=== PATIENT | male | born 1975 | race Caucasian/White ===

== ENCOUNTER 2017-12-26 08:51 | Emergency (ER) | payer OTHER ==
--- NOTE | 2017-12-26 09:20 | ER Document Report ---
ED Medical Screen (RME) - General Chief Complaint: Abscess Stated Complaint: POSSIBLE ABSCESS Time Seen by Provider: 12/26/17 09:18 Notes: Patient is a 42-year-old male that presents to the emergency department for chief complaint of abscess. Patient states she is noticed over the last 3 or 4 days abscess over his left upper back, has been draining thick yellow material. ROS: Other than noted above, the 12 point review of systems was reviewed with the patient and were negative, all pertinent findings are included in the HPI. PHYSICAL EXAMINATION: Vital signs reviewed. GENERAL: Well-appearing, well-nourished and in no acute distress. HEAD: Atraumatic, normocephalic. EYES: Pupils equal round extraocular movements intact, conjunctiva are normal. ENT: Nares patent NECK: Normal range of motion CV: Heart regular rate and rhythm LUNGS: No respiratory distress Musculoskeletal: Normal range of motion NEUROLOGICAL: Normal speech Skin: Left upper back demonstrates an area of induration, that comes to a head, with trace purulent discharge, seems most consistent with a sebaceous cyst PSYCH: Normal mood, normal affect. MDM: Patient seen and examined for rapid initial assessment. Vital signs reviewed. A comprehensive ED assessment and evaluation of the patient, analysis of test results and completion of the medical decision making process will be conducted by additional ED providers. *Note is created using voice recognition software and may contain spelling, syntax or grammatical errors. TRAVEL OUTSIDE OF THE [place] IN LAST 30 DAYS: No - Related Data Allergies/Adverse Reactions: No Known Allergies Allergy (Unverified 12/26/17 08:55) Past Medical History - Social History Chew tobacco use (# tins/day): No Frequency of alcohol use: Rare Drug Abuse: None Renal/ Medical History: Denies: Hx Peritoneal Dialysis Physical Exam - Vital signs Vitals: Temp Pulse Resp BP Pulse Ox 99.3 F 91 14 119/62 100 12/26/17 08:56 12/26/17 08:56 12/26/17 08:56 12/26/17 08:56 12/26/17 08:56 Course - Vital Signs Vital signs: Temp Pulse Resp BP Pulse Ox 99.3 F 91 14 119/62 100 12/26/17 08:56 12/26/17 08:56 12/26/17 08:56 12/26/17 08:56 12/26/17 08:56
--- NOTE | 2017-12-26 10:15 | ER Document Report ---
ED Skin Rash/Insect Bite/Abscs - General Chief Complaint: Abscess Stated Complaint: POSSIBLE ABSCESS Time Seen by Provider: 12/26/17 09:18 Notes: 42-year-old male to the emergency department complaining of pain/abscess in the left shoulder area. Posterior shoulder area. States that he has been poking on it at home. Up-to-date on shots and immunizations. Has had several abscesses in the past. Denies any fever, chills, sweats. Has not taken any antibiotics. Was unable to get any pus to come out after he poked on it at home. Was told he may have MRSA in the past. TRAVEL OUTSIDE OF THE [place] IN LAST 30 DAYS: No - HPI Onset: Yesterday Quality of pain: Achy Severity: Moderate Pain Level: 3 Skin Character: Abscess - Related Data Allergies/Adverse Reactions: No Known Allergies Allergy (Unverified 12/26/17 08:55) Past Medical History - General Information source: Patient - Social History Smoking Status: Current Every Day Smoker Chew tobacco use (# tins/day): No Frequency of alcohol use: Rare Drug Abuse: None Lives with: Spouse/Significant other Family History: Reviewed & Not Pertinent Patient has suicidal ideation: No Patient has homicidal ideation: No - Medical History Medical History: Negative Renal/ Medical History: Denies: Hx Peritoneal Dialysis Review of Systems - Review of Systems Constitutional: denies: Fever, Malaise, Weakness EENT: denies: Blurred vision, Throat pain, Difficulty swallowing Cardiovascular: denies: Chest pain, Palpitations, Heart racing Respiratory: denies: Cough, Hurts to breathe, Short of breath, Wheezing Musculoskeletal: Back pain. denies: Muscle pain, Muscle stiffness Skin: See HPI, Other - Abscess left posterior scapular area Hematologic/Lymphatic: denies: Blood clots, Easy bleeding, Easy bruising Neurological/Psychological: denies: Confusion, Weakness, Numbness Physical Exam - Vital signs Vitals: Temp Pulse Resp BP Pulse Ox 99.3 F 91 14 119/62 100 12/26/17 08:56 12/26/17 08:56 12/26/17 08:56 12/26/17 08:56 12/26/17 08:56 Interpretation: Normal - General General appearance: Appears well, Alert In distress: None - Respiratory Respiratory status: No respiratory distress Chest status: Nontender Breath sounds: Normal Chest palpation: Normal - Cardiovascular Rhythm: Regular Heart sounds: Normal auscultation Murmur: No - Extremities General upper extremity: Normal inspection, Nontender, Normal color, Normal ROM , Normal temperature General lower extremity: Normal inspection, Nontender, Normal color, Normal ROM , Normal temperature, Normal weight bearing. No: Perico's sign - Skin Skin Temperature: Warm Skin Moisture: Dry Skin Color: Other - There is a 1 cm area of erythema and slight fullness on the left posterior scapular area. Appears to have been manipulated prior to my arrival. There is a small eschar in the middle of this most tender area. Course - Re-evaluation Re-evalutation: 12/26/17 10:58 Abscess I&D: An ultrasound was performed. No significant fluid collection was seen. There appeared to be a 0.8 x 0.4 cm fluid collection. Just below the surface. Patient was consented for procedure. The area was prepped with Betadine. A sterile 18-gauge needle was used to de-roof the eschar in the middle of the lesion. A small amount of pus was obtained. The area was probed a little bit deeper with the needle and a small amount of blood and pus was obtained. Patient tolerated procedure well. No complications. No anesthesia was used. Patient had no pain. A sterile Band-Aid was placed over the the wound. Patient was advised to begin antibiotics as this more likely represents more cellulitis than an abscess and to return for any worsening symptoms or concerns. - Vital Signs Vital signs: Temp Pulse Resp BP Pulse Ox 99.3 F 86 14 118/60 96 12/26/17 08:56 12/26/17 10:39 12/26/17 08:56 12/26/17 10:39 12/26/17 10:39 Discharge - Discharge Clinical Impression: Abscess of back Condition: Good Disposition: HOME, SELF-CARE Instructions: Abscess ([facility]), Cephalexin ([facility]), Post Incision and Drainage, Trimethoprim-Sulfa ([facility]) Additional Instructions: In the event the symptoms are getting worse please return immediately for repeat evaluation and treatment. Prescriptions: Cephalexin Monohydrate [Keflex 500 mg Capsule] 500 mg PO Q6H 7 Days #28 capsule Ibuprofen [Motrin 800 mg Tablet] 800 mg PO Q8H PRN 7 Days #21 tab PRN Reason: For Pain Scale 3-4 Sulfamethoxazole/Trimethoprim [Bactrim Ds Tablet] 1 each PO BID 7 Days #14 tablet Forms: Return to Work [facility]errals: [facility] [[facility] - Follow up as needed
[2017-12-26 10:45] VITALS: BP 118/60
== END 2017-12-26 10:46 | disposition home or self-care (01) ==
LOC: ER 08:51
PROC: 0H96XZZ Drainage of Back Skin, External Approach (ICD-10-PCS; principal; 2017-12-26)
DX: L02.212 Cutaneous abscess of back [any part, except buttock and flank] (principal); F17.200 Nicotine dependence, unspecified, uncomplicated
CPT/HCPCS: 99282

== ENCOUNTER 2018-01-05 12:12 | Emergency (ER) | payer OTHER ==
[2018-01-05] MEDS ORDERED: LIDOCAINE 1% INJ-PF (10 MG/ML) 30 ML SDV INJ ONE (12:52)
--- NOTE | 2018-01-05 12:52 | ER Document Report ---
ED Medical Screen (RME) - General Chief Complaint: Wound Recheck Stated Complaint: WOUND RECHECK Time Seen by Provider: 01/05/18 12:51 Notes: 42 years old male presents today with untreated abscess over the back. It has formed an ulcerating wound. TRAVEL OUTSIDE OF THE [place] IN LAST 30 DAYS: No - Related Data Allergies/Adverse Reactions: No Known Allergies Allergy (Verified 01/05/18 12:42) Past Medical History - Social History Chew tobacco use (# tins/day): No Frequency of alcohol use: None Drug Abuse: None Renal/ Medical History: Denies: Hx Peritoneal Dialysis Physical Exam - Vital signs Vitals: Temp Pulse Resp BP Pulse Ox 98.2 F 99 18 131/75 H 100 01/05/18 12:22 01/05/18 12:22 01/05/18 12:22 01/05/18 12:22 01/05/18 12:22 Course - Vital Signs Vital signs: Temp Pulse Resp BP Pulse Ox 98.2 F 99 18 131/75 H 100 01/05/18 12:22 01/05/18 12:22 01/05/18 12:22 01/05/18 12:22 01/05/18 12:22 Doctor's Discharge - Discharge Referrals: [facility] [[facility]] - Follow up as needed
--- NOTE | 2018-01-05 15:30 | ER Document Report ---
ED General - General Chief Complaint: Wound Recheck Stated Complaint: WOUND RECHECK Time Seen by Provider: 01/05/18 12:51 Mode of Arrival: Ambulatory Information source: Patient Notes: 42-year-old male patient presented to ED for complaint of large wound to the left upper back close to the center that is draining purulent drainage with a bladder eschar. He states that is not really a lot of pain to the area but it is nasty and draining. He states he was here on 26 December and they tried to open it and put him on Keflex and Septra but is actually growing bigger and getting worse. TRAVEL OUTSIDE OF THE [place] IN LAST 30 DAYS: No - HPI Onset: Other Onset/Duration: Gradual - Several weeks, Worse Quality of pain: Achy Severity: Moderate Pain Level: 3 Associated symptoms: Other - Open draining wound to the upper left back Exacerbated by: Movement Relieved by: Denies Similar symptoms previously: Yes Recently seen / treated by doctor: Yes - Related Data Allergies/Adverse Reactions: No Known Allergies Allergy (Verified 01/05/18 12:42) Past Medical History - General Information source: Patient - Social History Smoking Status: Current Every Day Smoker Cigarette use (# per day): Yes Chew tobacco use (# tins/day): No Smoking Education Provided: Yes - 4 minutes Frequency of alcohol use: None Drug Abuse: None Lives with: Family Family History: Reviewed & Not Pertinent Patient has suicidal ideation: No Patient has homicidal ideation: No - Past Medical History Cardiac Medical History: Reports: None Pulmonary Medical History: Reports: None EENT Medical History: Reports: None Neurological Medical History: Reports: None Endocrine Medical History: Reports: None Renal/ Medical History: Reports: None Malignancy Medical History: Reports None GI Medical History: Reports: None Musculoskeletal Medical History: Reports None Skin Medical History: Reports None Psychiatric Medical History: Reports: None Traumatic Medical History: Reports: None Infectious Medical History: Reports: None Surgical Hx: Negative Past Surgical History: Reports: None - Immunizations Immunizations up to date: Yes Hx Diphtheria, Pertussis, Tetanus Vaccination: Yes Review of Systems - Review of Systems Notes: REVIEW OF SYSTEMS: CONSTITUTIONAL : Denies fever, chills, or sweats. Denies recent illness. EENT: Denies eye, ear, throat, or mouth pain or symptoms. Denies nasal or sinus congestion or discharge. Denies throat, tongue, or mouth swelling or difficulty swallowing. CARDIOVASCULAR: Denies chest pain. Denies palpitations or racing or irregular heart beat. Denies ankle edema. RESPIRATORY: Denies cough, cold, or chest congestion. Denies shortness of breath, difficulty breathing, or wheezing. GASTROINTESTINAL: Denies abdominal pain or distention. Denies nausea, vomiting , or diarrhea. Denies blood in vomitus, stools, or per rectum. Denies black, tarry stools. Denies constipation. GENITOURINARY: Denies difficulty urinating, painful urination, burning, frequency, blood in urine, or discharge. MUSCULOSKELETAL: Denies back or neck pain or stiffness. Denies joint pain or swelling. SKIN: Large open draining wound with eschar and purulent drainage. HEMATOLOGIC : Denies easy bruising or bleeding. LYMPHATIC: Denies swollen, enlarged glands. NEUROLOGICAL: Denies confusion or altered mental status. Denies passing out or loss of consciousness. Denies dizziness or lightheadedness. Denies headache. Denies weakness or paralysis or loss of use of either side. Denies problems with gait or speech. Denies sensory loss, numbness, or tingling. Denies seizures. PSYCHIATRIC: Denies anxiety or stress. Denies depression, suicidal ideation, or homicidal ideation. ALL OTHER SYSTEMS REVIEWED AND NEGATIVE. Dictation was performed using [employer] voice recognition software PHYSICAL EXAMINATION: GENERAL: Well-appearing, well-nourished and in no acute distress. HEAD: Atraumatic, normocephalic. EYES: Pupils equal round and reactive to light, extraocular movements intact, sclera anicteric, conjunctiva are normal. ENT: Nares patent, oropharynx clear without exudates. Moist mucous membranes. NECK: Normal range of motion, supple without lymphadenopathy LUNGS: Breath sounds clear to auscultation bilaterally and equal. No wheezes rales or rhonchi. HEART: Regular rate and rhythm without murmurs ABDOMEN: Soft, nontender, nondistended abdomen. No guarding, no rebound. No masses appreciated. Musculoskeletal: Normal range of motion, no pitting or edema. No cyanosis. NEUROLOGICAL: Cranial nerves grossly intact. Normal speech, normal gait. Normal sensory, motor exams PSYCH: Normal mood, normal affect. SKIN: Large open wound to the left upper back that was seen on the draining purulent drainage from the pictures the patient has it is much bigger much deeper. Physical Exam - Vital signs Vitals: Temp Pulse Resp BP Pulse Ox 98.2 F 99 18 131/75 H 100 01/05/18 12:22 01/05/18 12:22 01/05/18 12:22 01/05/18 12:22 01/05/18 12:22 Course - Re-evaluation Re-evalutation: 01/05/18 15:52 Dr. Dc at the bedside. He examined the patient. At first he was going to take the patient to the OR until he was able to palpate the wound with no discomfort to the patient. Then he decided he would do the wound debridement at the bedside. Patient states he would prefer to have it done at the bedside and to go to the emergency room. Equipment is being gathered from Dr. Dc to do the debridement to the wound. - Vital Signs Vital signs: Temp Pulse Resp BP Pulse Ox 98.6 F 86 14 112/60 99 01/05/18 18:09 01/05/18 18:09 01/05/18 18:09 01/05/18 18:09 01/05/18 18:09 - Laboratory Result Diagrams: 01/05/18 15:38 01/05/18 15:38 Laboratory results interpreted by me: 01/05/18 01/05/18 15:38 15:38 RBC 3.20 L Hgb 10.8 L Hct 32.0 L MCV 100 H MCH 33.8 H RDW 22.5 H Seg Neuts % (Manual) 81 H Lymphocytes % (Manual) 5 L Abs Lymphs (Manual) 0.3 L AST 149 H ALT 117 H Discharge - Discharge Clinical Impression: large open wound to back Condition: Stable Disposition: HOME, SELF-CARE Additional Instructions: CELLULITIS: You have an infection of your skin and underlying soft tissues called cellulitis. This is due to bacteria, which can enter through any break in the skin, or even through an irritated hair follicle. Untreated, cellulitis will usually worsen. Antibiotics are required. Usually, warm packs or warm soaks, and elevation of the infected area are recommended. You should start getting better within 24 to 36 hours. Most infections respond quickly to the right medication. Follow-up care is important, however, to check for abscess (boil) formation, unsuspected foreign body, or resistant infection. If you develop fever, chills, or if the area of infection is becoming rapidly more swollen or painful, call the doctor at once. Large wound was debrided in the emergency room by Dr. Dc. He has instructed your how to care for this wound until you follow-up with wound care clinic. I have given you a form to take with you on Tuesday to the wound care clinic. We will also fax a copy to the wound care clinic. Please be sure to call before going to the wound care clinic to ensure what time they have an appointment for you. Please be sure to change the dressing as he showed you twice a day. Please be sure to take your shower just before changing the dressing. Please fill your antibiotics today and take 1 dose tonight before you go to bed and then take the pills 4 times a day as instructed. [facility] not [facility] as [facility] right away. Please take the antibiotics until they are completed. MRSA CELLULITIS: You have an infection of your skin and underlying soft tissues called cellulitis. This is due to bacteria, which can enter through any break in the skin, or even through an irritated hair follicle. Untreated, cellulitis will usually worsen and may form an abscess which requires draining. Although many bacterial organisms can cause cellulitis and abscess formations, the most likely bacteria is Methicillin-Resistant Staph Aureus, or MRSA for short. Antibiotics are required. Usually, warm packs or warm soaks, and elevation of the infected area are recommended. You should start getting better within 24 to 36 hours. Most infections respond quickly to the right medication. Follow-up care is important, however, to check for abscess (boil) formation, unsuspected foreign body, or resistant infection. If you develop fever, chills, or if the area of infection is becoming rapidly more swollen or painful, call the doctor at once. CLINDAMYCIN: You have been given a prescription for the antibiotic clindamycin. It is often prescribed for infections in the mouth, such as dental infections or abscesses, and for skin infections due to MRSA. It's important that you take all the medication, unless instructed otherwise by your physician. Failure to complete the entire course can result in relapse of your condition. Common side effects of antibiotics include nausea, intestinal cramping, or diarrhea. Women may develop vaginal yeast infections, and babies can get yeast (thrush) in the mouth following the use of antibiotics. Contact your physician if you develop significant side effects from this medication. Allergy to this antibiotic can result in hives, wheezing, faintness, or itching. If symptoms of allergy occur, stop the medication and call the doctor. ORAL NARCOTIC MEDICATION: You have been given a prescription for pain control. This medication is a narcotic. It's best taken with food, as nausea can result if taken on an empty stomach. Don't operate machinery or drive within six hours of taking this medication. Do not combine this medicine with alcohol, or with any medication which can cause sedation (such as cold tablets or sleeping pills) unless you get permission from the physician. Narcotics tend to cause constipation. If possible, drink plenty of fluids and eat a diet high in fiber and fruits. Please be aware that prescription narcotics also have the potential for abuse. People become addicted to these medications because of the general sense of wellbeing that they induce. This feeling along with a significant reduction in tension, anxiety, and aggression provides a stimulating seductive quality to these drugs. Once your pain is under control, we encourage you to discard your unused narcotics. FOLLOW-UP CARE: If you have been referred to a physician for follow-up care, call the physician s office for an appointment as you were instructed or within the next two days. If you experience worsening or a significant change in your symptoms, notify the physician immediately or return to the Emergency Department at any time for re-evaluation. Prescriptions: Clindamycin HCl 300 mg PO Q6 #40 capsule Forms: Elevated Blood Pressure, Smoking Cessation Education, Return to Work Referrals: [facility] [[facility]] - Follow up as needed
[2018-01-05 15:54] LABS: HEMOGLOBIN 10.8 g/dL (13.5-17.0); MEAN CORPUSCULAR HEMOGLOBIN 33.8 pg (27.0-33.4); MEAN CORPUSCULAR HGB CONC 33.8 g/dL (32.0-36.0); MEAN CORPUSCULAR VOLUME 100 fl (80-97); PLATELET COUNT 271 10^3/uL (150-450); RED CELL DISTRIBUTION WIDTH 22.5 % (11.5-14.0); WHITE BLOOD COUNT 5.9 10^3/uL (4.0-10.5)
[2018-01-05 16:14] LABS: ABSOLUTE LYMPHOCYTES# (MANUAL) 0.3 10^3/uL (0.5-4.7); ABSOLUTE MONOCYTES # (MANUAL) 0.5 10^3/uL (0.1-1.4); ABSOLUTE NEUTROPHILS# (MANUAL) 4.8 10^3/uL (1.7-8.2); BASOPHILS % (MANUAL) 0 % (0-2); EOSINOPHILS % (MANUAL) 5 % (0-6); LYMPHOCYTES % (MANUAL) 5 % (13-45); MONOCYTES % (MANUAL) 9 % (3-13); SEGMENTED NEUTROPHILS % (MAN) 81 % (42-78); TOTAL CELLS COUNTED 100
[2018-01-05 16:16] LABS: ALANINE AMINOTRANSFERASE 117 U/L (21-72); ALBUMIN 3.8 g/dL (3.5-5.0); ALKALINE PHOSPHATASE 110 U/L (38-126); ANION GAP 13 (5-19); ASPARTATE AMINO TRANSFERASE 149 U/L (17-59); BILIRUBIN,DIRECT 0.4 mg/dL (0.0-0.4); BILIRUBIN,TOTAL 0.6 mg/dL (0.2-1.3); BLOOD UREA NITROGEN 10 mg/dL (7-20); CALCIUM 9.2 mg/dL (8.4-10.2); CARBON DIOXIDE 28 mmol/L (22-30); CHLORIDE 100 mmol/L (98-107); GLUCOSE 107 mg/dL (75-110); SODIUM 140.7 mmol/L (137-145); TOTAL PROTEIN 6.4 g/dL (6.3-8.2)
[2018-01-05 16:17] LABS: ANISOCYTOSIS 3+; OVALOCYTES SLIGHT; PLATELET COMMENT ADEQUATE; POIKILOCYTOSIS SLIGHT; POLYCHROMASIA SLIGHT; TEAR DROP CELLS SLIGHT
[2018-01-05] MEDS ORDERED: CLINDAMYCIN 900 MG/D5W RTU 900 MG/50 ML RTUPB IV ONE (16:32)
[2018-01-05 18:10] VITALS: BP 112/60
--- NOTE | 2018-01-05 19:47 | OPERATIVE REPORT E ---
Operative Report NAME: SEBASTIÁN MITTAL : 1975 AGE: 42Y DATE OF SURGERY: 01/05/2018 ROOM: PREOPERATIVE DIAGNOSIS: ABSCESS OF THE LEFT UPPER BACK. POSTOPERATIVE DIAGNOSIS: ABSCESS OF THE LEFT UPPER BACK. OPERATION: DEBRIDEMENT ABSCESS LEFT UPPER BACK WITH USE OF 11 BLADE. SURGEON: JACKSON MCKEON M.D. ANESTHESIA: Local. INDICATIONS: A 42-year-old male who has abscess of the left upper back that was drained about 10 days ago in the ED. It continues to fester and now appears to have more tunneling. PROCEDURE: The patient was placed in the right lateral decubitus position and the left upper back where the abscess was, was then prepped and draped in the usual sterile fashion. Local anesthesia infiltrated around the abscess cavity site, which measures about 4 x 6 cm. Sharp debridement of necrotic tissue down to the fascia was done with the use of 11 blade. Cultures were obtained since it was suspicious for MRSA. There were a few tunneling that were unroofed with the use of 11 blade. There was some necrotic tissue. Close to normal tissue was left intact because of risk of bleeding. It did bleed quite a bit, but this was controlled with pressure. The patient was instructed to apply wet to dry dressing twice a day and to follow up at the wound care center in about 2 to 3 days. I spoke to the ER physician who ordered clindamycin IV initially and then p.o. I told the patient and his that if this gets any worse in the next few days, then he has to go back to the ED for further debridement. The area of the abscess was about 4 x 6 cm with undermining at least 1 cm around it. The area was debrided sharply down and including part of the fascia , but not to the muscle. Patient tolerated procedure well. DICTATING PHYSICIAN: JACKSON MCKEON M.D. [id number] PHY#: [id number] ID: [id number] JOB#: [id number] ACCT: [id number] cc:JACKSON MCKEON M.D. > [facility]
== END 2018-01-05 18:10 | disposition home or self-care (01) ==
LOC: ER 12:12
DX: T81.49XA Infection following a procedure, other surgical site, initial encounter (principal); F17.210 Nicotine dependence, cigarettes, uncomplicated
CPT/HCPCS: 99284; 96365; 36415; 87040; 87070; 87205; 85025; 87075; 87077; 80053; 87186; J3490; A6266